=== PATIENT | male | born 1955 | race African-American/Black ===

== ENCOUNTER 2016-11-28 11:50 | Emergency (ER) | payer BC ==
[2016-11-28] MEDS ORDERED: AMOXicillin 250 MG CAP ONE (12:10)
[2016-11-28] MEDS ORDERED: HYDROcodone/Acetaminophen 10/325 mg Tablet ONE (12:10)
[2016-11-28] MEDS ORDERED: Naproxen 500 MG TAB ONE (12:10)
== END 2016-11-28 12:13 | disposition home or self-care (01) ==
LOC: MADERS 11:50
DX: K04.7 Periapical abscess without sinus (principal); K02.9 Dental caries, unspecified; K03.81 Cracked tooth; R59.0 Localized enlarged lymph nodes; F17.210 Nicotine dependence, cigarettes, uncomplicated
CPT/HCPCS: 99283